=== PATIENT | female | born 1950 | race Two or more races ===

== ENCOUNTER 2024-04-08 08:14 | Outpatient (CLI) | payer OTHER ==
[2024-04-08 08:58] LABS: URINE APPEARANCE Clear; URINE BILIRRUBIN Negative (NEGATIVE); URINE BLOOD Negative; URINE COLOR Yellow; URINE KETONE Negative (NEGATIVE); URINE LEUKOCYTE Negative; URINE NITRATE Negative; URINE PROTEIN Negative (NEGATIVE); URINE UROBILINOGEN 0.2 E.U./dl
[2024-04-08 09:00] LABS: URINE BACTERIA 69.2 uL (0.0-1933); URINE EPITHELIAL CELLS 19.5 uL (0.0-38.8); URINE WBC 16.5 uL (0.0-23.2)
[2024-04-08 09:02] LABS: URINE GLUCOSE 250 MG/DL (NEGATIVE); URINE RBC 1.6 uL (0.0-20.8)
[2024-04-08 09:07] LABS: HEMATOCRIT 36.1 % (36.0-45.00); MEAN CELL VOLUME 90.9 fL (80.00-100.00); MEAN CORPUSCULAR HEMOGLOBIN 30.2 pg (27.00-32.0); MEAN CORPUSCULAR HGB CONC 33.2 g/dl (32.0-36.0); PLATELET COUNT 146 K/uL (150-450); RED BLOOD COUNT 3.97 M/uL (4.00-6.00); RED CELL DISTRIBUTION WIDTH 14.6 % (11.5-14.5)
[2024-04-08 09:26] LABS: INR 1.03; PARTIAL THROMBOPLASTIN TIME 28.2 SECONDS (22.0-34.0); PROTHROMBIN TIME 11.2 SECONDS (9.0-11.5)
[2024-04-08 09:35] LABS: CALCIUM 9.5 mg/dL (8.5-10.1); CREATININE SERUM 1.21 mg/dL (0.55-1.02); GFR 43.5; POTASSIUM 4.13 mEq/L (3.5-5.1)
[2024-04-08] MEDS ORDERED: SYNTHROID50 MCG PO (10:13)
[2024-04-08] MEDS ORDERED: TOPROL XL50 M1 PO (10:13)
[2024-04-08] MEDS ORDERED: LIPITOR20 MG PO (10:13)
[2024-04-08] MEDS ORDERED: GRALISE600 MG PO (10:14)
[2024-04-08] MEDS ORDERED: FARXIGA10 MG PO (10:14)
== END 2024-04-08 08:28 | disposition home or self-care (01) ==
LOC: LAB 08:14
PROVIDERS: ATTEND Surgery Surgery of the Hand
DX: D68.9 Coagulation defect, unspecified (principal); Z01.812 Encounter for preprocedural laboratory examination; Z20.828 Contact with and (suspected) exposure to other viral communicable diseases

== ENCOUNTER 2024-04-13 05:43 | Day surgery (SDC) | payer OTHER ==
[2024-04-08 10:16] VITALS: BP 150/76
[~2024-04-13] VITALS: Ht 160 cm; Wt 63.5 kg
[~2024-04-13 05:43] MED LIST: FARXIGA10 MG PO; GRALISE600 MG PO; LIPITOR20 MG PO; SYNTHROID50 MCG PO; TOPROL XL50 M1 PO
[2024-04-13] MEDS ORDERED: CEFAZOLIN SODIUM 1,000 MG VIAL ONE (07:49)
[2024-04-13] MEDS ORDERED: BUPIVACAINE HCL/MPF 0.5% 30ML VIAL ONE (12:55)
== END 2024-04-13 16:05 | disposition home or self-care (01) ==
LOC: CIR.AMB 05:43
PROVIDERS: ATTEND Surgery Surgery of the Hand
DX: M65.842 Other synovitis and tenosynovitis, left hand (principal); M67.844 Other specified disorders of tendon, left hand

== ENCOUNTER 2024-11-16 06:00 | Day surgery (SDC) | payer OTHER ==
[2024-11-11 14:26] LABS: ALBUMIN 3.8 gm/dL (3.4-5.0); BILIRUBIN TOTAL 0.65 mg/dL (0.3-1.2); CALCIUM 9.5 mg/dL (8.5-10.1); CREATININE SERUM 1.31 mg/dL (0.55-1.02); GFR 39.69; GLOBULINA 3.5 G/DL (2.4-3.5); POTASSIUM 4.01 mEq/L (3.5-5.1); TOTAL PROTEIN 7.3 gm/dL (6.4-8.2)
[2024-11-16] MEDS ORDERED: CEFAZOLIN SODIUM 1,000 MG VIAL ONE (08:18)
[2024-11-16] MEDS ORDERED: TRIAMCINOLONE ACETONIDE 40 MG/ML VIAL ONE (08:43)
[2024-11-16] MEDS ORDERED: MORPHINE SULFATE 2 MG/ML CARTRIDGE IV ONE (09:55)
== END 2024-11-16 11:10 | disposition home or self-care (01) ==
LOC: CIR.AMB 06:00
PROVIDERS: ATTEND Surgery Surgery of the Hand
DX: M65.841 Other synovitis and tenosynovitis, right hand (principal); M67.843 Other specified disorders of tendon, right hand